=== PATIENT | female | born 1985 | race Caucasian/White ===

== ENCOUNTER 2018-07-10 15:52 | Emergency (ER) | payer MEDICAID ==
[2018-07-10 16:00] VITALS: BP 136/96
--- NOTE | 2018-07-10 16:05 | EDM.PDOC ---
ED HPI GENERAL MEDICAL PROBLEM - General Chief Complaint: Upper Extremity Injury/Pain Stated Complaint: SHARP PAINS RIGHT ARM/SHOULDER Time Seen by Provider: 07/10/18 16:03 Source of Information: Reports: Patient, Old Records, RN, RN Notes Reviewed History Limitations: Reports: No Limitations - History of Present Illness INITIAL COMMENTS - FREE TEXT/NARRATIVE: Pt presents to ER by POV with c/o one weeks duration of sharp pains with muscle spasms at the right trapezius area, and has right wrist pain and swelling. Denies any recent injury, redness, fevers, or chills. Pt reports right wrist fracture 25yrs ago but did not have a cast or f/u care. Pt is concerned that she might be having radiating from a pinched nerve in her neck. Denies neck pain or injury. Pt rates the pain 08/14. 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: Acetaminophen, NSAIDS Right Wrist Pain Score (Numeric/FACES): 7 - Related Data Allergies Allergy/AdvReac Type Severity Reaction Status Date / Time No Known Allergies Allergy Verified 07/10/18 16:01 Home Meds: Home Meds Multivitamin [Multi-Day Vitamins] 1 tab PO DAILY 07/10/18 [History] Past Medical History - Past Surgical History HEENT Surgical History: Reports: Other (See Below) Female Surgical History: Reports: Section Social & Family History - Family History Family Medical History: Noncontributory - Living Situation & Occupation Living situation: Reports: with Family Review of Systems - Review of Systems Review Of Systems: ROS reveals no pertinent complaints other than HPI. ED EXAM, GENERAL - Physical Exam Exam: See Below Exam Limited By: No Limitations General Appearance: Alert, WD/WN, No Apparent Distress, Obese Throat/Mouth: Normal Inspection, Normal Voice, No Airway Compromise Head: Atraumatic, Normocephalic Neck: Normal Inspection, Supple, Non-Tender, Full Range of Motion. No: Lymphadenopathy (L), Lymphadenopathy (R) Respiratory/Chest: No Respiratory Distress, Lungs Clear Cardiovascular: Normal Peripheral Pulses, Regular Rate, Rhythm Back Exam: Full Range of Motion, Muscle Spasm (Rt trapezius region) Extremities: Normal Capillary Refill, Joint Swelling (very mild at Rt wrist with ROM decreased due to pain, no erythema, no increased warmth) Neurological: Alert, Oriented, CN II-XII Intact, Normal Cognition, Normal Gait, No Motor/Sensory Deficits Psychiatric: Normal Affect, Normal Mood Skin Exam: Warm, Dry, Intact, Normal Color, No Rash ED TRAUMA EXTREMITY PROCEDURES - Splinting Right Upper Extremity Splint Site: Right wrist Pre-Procedure NV Status: Normal Post-Procedure NV Status: Normal Splint Material: Velcro Splint Design: Volar Provider Post-Splint Application NV Check: NV Status Normal Complications: No Course - Vital Signs Last Recorded V/S: Last Vital Signs Temp 97.7 F 07/10/18 15:59 Pulse 88 07/10/18 15:59 Resp 16 07/10/18 15:59 BP 136/96 H 07/10/18 15:59 Pulse Ox 97 07/10/18 15:59 - Orders/Labs/Meds Orders: Active Orders 24 hr Category Date Time Status Wrist Comp Min 3V Rt [CR] Urgent Exams 07/10/18 16:14 Taken Departure - Departure Time of Disposition: 16:31 Disposition: Home, Self-Care 01 Condition: Good Clinical Impression: Trapezius muscle spasm, Right wrist pain - Discharge Information *PRESCRIPTION DRUG MONITORING PROGRAM REVIEWED*: Yes *COPY OF PRESCRIPTION DRUG MONITORING REPORT IN PATIENT ARCELIA: Not Applicable Instructions: Joint Pain, [id number], Muscle Cramps and Spasms, [id number] Forms: ED Department Discharge Additional Instructions: Rx: Cyclobenzaprine 10mg *Do not drive or work while under the influence of this medication. Rx: Naprosyn 500mg *Take with food. Wear right wrist splint as needed for comfort. Follow up in clinic for recheck and further evaluation if needed. - My Orders Last 24 Hours: My Active Orders 07/10/18 16:14 Wrist Comp Min 3V Rt [CR] Urgent - Assessment/Plan Last 24 Hours: My Active Orders 07/10/18 16:14 Wrist Comp Min 3V Rt [CR] Urgent
--- NOTE | 2018-07-10 16:51 | CR ---
Clinical history: 33-year-old female pain and swelling of the right wrist. Interpretation: Homogeneous normal bone density appropriate for age and gender. No arthritic degenerative changes. No sign of right wrist fracture or dislocation. No foreign bodies.
== END 2018-07-10 16:37 | disposition home or self-care (01) ==
LOC: DL.ED 15:52
DX: M62.830 Muscle spasm of back (principal); M25.531 Pain in right wrist
CPT/HCPCS: 73110-RT; 99283-25

== ENCOUNTER 2018-12-30 17:55 | Emergency (ER) | payer MEDICAID ==
[2018-12-30 18:15] VITALS: BP 148/81; PULSE 86
[2018-12-30] MEDS ORDERED: Ketorolac 30 MG/ML SDV IM ONE (19:55)
[2018-12-30 20:06] LABS: ANION GAP 12.5; CHLORIDE,CL 106 mmol/L (101-111); SODIUM,NA 138 mmol/L (135-145)
--- NOTE | 2018-12-30 21:17 | EDM.PDOC ---
ED HPI GENERAL MEDICAL PROBLEM - General Chief Complaint: Neck Problem Stated Complaint: NERVE PAIN/DIZZY Time Seen by Provider: 12/30/18 18:30 Source of Information: Reports: Patient, RN, RN Notes Reviewed History Limitations: Reports: No Limitations - History of Present Illness INITIAL COMMENTS - FREE TEXT/NARRATIVE: patient presents to ER with complaint of neck pain, headache. Patient states she woke up very early this morning with a pain in her high neck, base of her skull. Patient states she has history of muscle spasms. Patient denies any recent trauma, car accidents, heavy lifting or repetitive motion. Patient denies any recent illness, cough, N/V/D, fever or chills. patient is tearful and states this is the worst headache she has had.Rates pain 6/10.Denies visual disturbances, but does admit to some dizziness earlier in the day. Onset: Today Duration: Constant Location: Reports: Head, Neck Quality: Reports: Throbbing Severity: Moderate Improves with: Reports: None Worsens with: Reports: None Neck Pain Score (Numeric/FACES): 6 - Related Data Allergies Allergy/AdvReac Type Severity Reaction Status Date / Time No Known Allergies Allergy Verified 12/30/18 18:09 Home Meds: Home Meds Multivitamin [Multi-Day Vitamins] 1 tab PO DAILY 07/10/18 [History] Past Medical History - Past Health History Medical/Surgical History: Denies Medical/Surgical History HEENT History: Reports: None Cardiovascular History: Reports: None Respiratory History: Reports: None Gastrointestinal History: Reports: None Genitourinary History: Reports: None 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 Musculoskeletal History: Reports: Arthritis Other Musculoskeletal History: scolosis, Neurological History: Reports: Seizure Other Neuro History: had a seizure 31 years, Psychiatric History: Reports: ADHD Endocrine/Metabolic History: Reports: None Hematologic History: Reports: None Immunologic History: Reports: None Oncologic (Cancer) History: Reports: None Dermatologic History: Reports: None - Infectious Disease History Infectious Disease History: Reports: Chicken Pox - Past Surgical History Head Surgeries/Procedures: Reports: None Female Surgical History: Reports: Section Social & Family History - Family History Family Medical History: Noncontributory - Tobacco Use Smoking Status *Q: Current Every Day Smoker Years of Tobacco use: 12 Packs/Tins Daily: 1 - Caffeine Use Caffeine Use: Reports: Coffee - Recreational Drug Use Recreational Drug Use: No - Living Situation & Occupation Living situation: Reports: with Family ED ROS GENERAL - Review of Systems Review Of Systems: Comprehensive ROS is negative, except as noted in HPI. ED EXAM, UPPER BACK/NECK PAIN - Physical Exam Exam: See Below Exam Limited By: No Limitations General Appearance: Alert, WD/WN, Moderate Distress Eye Exam: Bilateral Eye: EOMI, Normal Inspection Ears Exam: Normal External Exam, Normal Canal, Hearing Grossly Normal, Normal TMs Nose Exam: Normal Inspection, Normal Mucousa, No Blood Throat/Mouth Exam: Normal Inspection, Normal Lips, Normal Teeth, Normal Gums, Normal Oropharynx, Normal Voice, No Airway Compromise Head Exam: Atraumatic, Normocephalic Neck Exam: Non-Tender, Full Range of Motion, Normal Alignment, Normal Inspection , Stiff Neck, Tenderness, Tender Lateral, Tender Midline Nexus Criteria: Posterior, Midline Cervical Tenderness. 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 As Tested, No Motor/Sensory Deficits, Alert, Normal Mood/Affect, Oriented x 3 Psychiatric: Normal Affect, Anxious Skin Exam: Normal Color, Warm/Dry Lymphatic: No Adenopathy Course - Vital Signs Last Recorded V/S: Last Vital Signs Temp 98.1 F 12/30/18 18:10 Pulse 86 12/30/18 18:10 Resp 16 12/30/18 18:10 BP 148/81 H 12/30/18 18:10 Pulse Ox 100 12/30/18 18:10 - Orders/Labs/Meds Labs: Laboratory Tests 12/30/18 12/30/18 12/30/18 Range/Units 19:29 19:29 19:40 WBC 11.4 H (5.0-10.0) 10^3/uL RBC 4.44 (4.2-5.4) 10^6/uL Hgb 13.3 (12.0-16.0) g/dL Hct 40.6 (37.0-47.0) % MCV 91.4 (80-100) fL MCH 30.0 (27.0-34.0) pg MCHC 32.8 L (33.0-35.0) g/dL Plt Count 530 H (150-450) 10^3/uL Neut % (Auto) 57.6 (42.2-75.2) % Lymph % (Auto) 34.4 (20.5-50.1) % [place] % (Auto) 6.1 (2-8) % Eos % (Auto) 1.5 (1.0-3.0) % Baso % (Auto) 0.4 (0.0-1.0) % Sodium (135-145) mmol/L Potassium (3.6-5.0) mmol/L Chloride (101-111) mmol/L Carbon Dioxide (21.0-31.0) mmol/L Anion Gap BUN (7-18) mg/dL Creatinine (0.6-1.3) mg/dL Est Cr Clr Drug Dosing mL/min Estimated GFR (MDRD) BUN/Creatinine Ratio Glucose (74-105) mg/dL Calcium (8.4-10.2) mg/dl Total Bilirubin (0.2-1.0) mg/dL AST (10-42) IU/L ALT (10-60) IU/L Alkaline Phosphatase (42-121) IU/L Total Protein (6.7-8.2) g/dl Albumin (3.2-5.5) g/dl Globulin Albumin/Globulin Ratio Urine Color Yellow (YELLOW) Urine Appearance Slightly cloudy (CLEAR) Urine pH 7.0 (5.0-9.0) Ur Specific Otto 1.010 (1.005-1.030) Urine Protein Negative (NEGATIVE) Urine Glucose (UA) Negative (NEGATIVE) Urine Ketones Negative (NEGATIVE) Urine Occult Blood Trace-intact H (NEGATIVE) Urine Nitrite Negative (NEGATIVE) Urine Bilirubin Negative (NEGATIVE) Urine Urobilinogen 1.0 (0.2-1.0) mg/dL Ur Leukocyte Esterase Negative (NEGATIVE) Urine RBC 5-10 H /HPF Urine WBC 0-5 (0-5/HPF) /HPF Ur Epithelial Cells Few (NOT SEEN) /HPF Urine Bacteria Rare (0-FEW/HPF) /HPF Urine HCG, Qual Negative 12/30/18 Range/Units 19:40 WBC (5.0-10.0) 10^3/uL RBC (4.2-5.4) 10^6/uL Hgb (12.0-16.0) g/dL Hct (37.0-47.0) % MCV (80-100) fL MCH (27.0-34.0) pg MCHC (33.0-35.0) g/dL Plt Count (150-450) 10^3/uL Neut % (Auto) (42.2-75.2) % Lymph % (Auto) (20.5-50.1) % [place] % (Auto) (2-8) % Eos % (Auto) (1.0-3.0) % Baso % (Auto) (0.0-1.0) % Sodium 138 (135-145) mmol/L Potassium 3.5 L (3.6-5.0) mmol/L Chloride 106 (101-111) mmol/L Carbon Dioxide 23.0 (21.0-31.0) mmol/L Anion Gap 12.5 BUN 9 (7-18) mg/dL Creatinine 0.8 (0.6-1.3) mg/dL Est Cr Clr Drug Dosing 82.74 mL/min Estimated GFR (MDRD) > 60 BUN/Creatinine Ratio 11.25 Glucose 120 H (74-105) mg/dL Calcium 9.3 (8.4-10.2) mg/dl Total Bilirubin 0.6 (0.2-1.0) mg/dL AST 22 (10-42) IU/L ALT 22 (10-60) IU/L Alkaline Phosphatase 65 (42-121) IU/L Total Protein 7.7 (6.7-8.2) g/dl Albumin 4.5 (3.2-5.5) g/dl Globulin 3.2 Albumin/Globulin Ratio 1.41 Urine Color (YELLOW) Urine Appearance (CLEAR) Urine pH (5.0-9.0) Ur Specific Otto (1.005-1.030) Urine Protein (NEGATIVE) Urine Glucose (UA) (NEGATIVE) Urine Ketones (NEGATIVE) Urine Occult Blood (NEGATIVE) Urine Nitrite (NEGATIVE) Urine Bilirubin (NEGATIVE) Urine Urobilinogen (0.2-1.0) mg/dL Ur Leukocyte Esterase (NEGATIVE) Urine RBC /HPF Urine WBC (0-5/HPF) /HPF Ur Epithelial Cells (NOT SEEN) /HPF Urine Bacteria (0-FEW/HPF) /HPF Urine HCG, Qual Meds: Medications Discontinued Medications Generic Name Dose Route Start Last Admin Trade Name Lalitoq PRN Reason Stop Dose Admin Ketorolac Tromethamine 30 mg 12/30/18 19:55 12/30/18 20:15 Toradol IM 12/30/18 19:56 30 mg ONETIME ONE Administration Orphenadrine Citrate 60 mg 12/30/18 19:56 12/30/18 20:14 Norflex IM 12/30/18 19:57 60 mg ONETIME ONE Administration - Radiology Interpretation Free Text/Narrative:: head CT without contrast: FINDINGS: Brain: Normal. No hemorrhage. Unremarkable white matter. No mass effect. Ventricles: Normal. No ventriculomegaly. Bones/joints: Unremarkable. No acute fracture. Sinuses: Visualized sinuses are unremarkable. No fluid levels. Mastoid air cells: Visualized mastoid air cells are well aerated. Soft tissues: Unremarkable. IMPRESSION: No acute intracranial abnormality. Thank you for allowing us to participate in the care of your patient. Dictated and Authenticated by: Vik Fuentes MD C-spine CT without contrast: FINDINGS: Vertebrae: No fracture or malalignment. Remaining disc levels and facet joints are unremarkable. Discs/Spinal canal/Neural foramina: Mild disc degeneration with posterior discussed by complex at C4-5. No significant spinal or foraminal stenosis. Soft tissues: Unremarkable. Lungs: Lung apices are normal. IMPRESSION: 1. Mild degenerative changes at C4-5. 2. No fracture or malalignment. Thank you for allowing us to participate in the care of your patient. Dictated and Authenticated by: Vik Fuentes MD See radiologist's report Departure - Departure Time of Disposition: 21:15 Disposition: Home, Self-Care 01 Condition: Fair Clinical Impression: Muscle tension headache - Discharge Information *PRESCRIPTION DRUG MONITORING PROGRAM REVIEWED*: No *COPY OF PRESCRIPTION DRUG MONITORING REPORT IN PATIENT ARCELIA: No Instructions: Tension Headache, Adult, [id number], Cervical Sprain, Easy-to- Read Referrals: PCP,None [Primary Care Provider] - Forms: ED Department Discharge Additional Instructions: Rx: Flexeril Do Not Drive while taking May use Tylenol and Ibuprofen as directed for pain Apply heat to the neck as tolerated Follow up with your primary care facility [facility]
== END 2018-12-30 21:22 | disposition home or self-care (01) ==
LOC: DL.ED 17:55
DX: G44.209 Tension-type headache, unspecified, not intractable (principal); F17.210 Nicotine dependence, cigarettes, uncomplicated
CPT/HCPCS: 36415; 70450; 72125; 80053; 81001; 81025; 85025; 96372; 99284-25; J1885; J2360

== ENCOUNTER 2021-01-02 16:01 | Emergency (ER) | payer MEDICAID ==
[2021-01-02] MEDS ORDERED: Benzocaine/Cetylpyridinium/Menthol Lozenge ONE (16:02)
[2021-01-02] MEDS ORDERED: Benzonatate 100 MG Cap PO ONE (16:02)
[2021-01-02 16:40] VITALS: BP 148/91; PULSE 92
--- NOTE | 2021-01-02 17:52 | EDM.PDOC ---
ED HPI GENERAL MEDICAL PROBLEM - General Chief Complaint: General Stated Complaint: 97.2*, COUGHING, SORE THROAT, CHILLS Time Seen by Provider: 01/02/21 17:10 Source of Information: Reports: Patient, RN, RN Notes Reviewed History Limitations: Reports: No Limitations - History of Present Illness INITIAL COMMENTS - FREE TEXT/NARRATIVE: Debbi is a 35 y/o female who presents to the ED via personal vehicle with complaints of cough, sore throat, and nasal congestion. The patient reports her symptoms began two days ago and have progressively worsened in that time. Additionally, she notes fatigue and muscle aches. She denies fever, shaking chills, vision changes, dizziness, chest pain/pressure, palpitations, shortness of breath, abdominal pain, nausea, vomiting, or dyspepsia. The patient denies history of COVID infection; she is not vaccinated for COVID-19 or Influenza. The patient has taken no medications or performed any supportive cares for her symptoms. She attests to smoking one pack of cigarettes per day; she denies alcohol or recreational drug use. Generalized Pain Score (Numeric/FACES): 8 - Related Data Allergies Allergy/AdvReac Type Severity Reaction Status Date / Time No Known Allergies Allergy Verified 01/02/21 16:40 Home Meds: Home Meds Multivitamin [Multi-Day Vitamins] 1 tab PO DAILY 07/10/18 [History] Meloxicam 15 mg PO ASDIRECTED 01/02/21 [History] Omeprazole 20 mg PO ASDIRECTED 01/02/21 [History] Past Medical History - Past Health History Medical/Surgical History: Denies Medical/Surgical History HEENT History: Reports: None Cardiovascular History: Reports: None Respiratory History: Reports: None Gastrointestinal History: Reports: None Genitourinary History: Reports: None 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 Musculoskeletal History: Reports: Arthritis Other Musculoskeletal History: scolosis, Neurological History: Reports: Seizure Other Neuro History: had a seizure 31 years, Psychiatric History: Reports: ADHD Endocrine/Metabolic History: Reports: None Hematologic History: Reports: None Immunologic History: Reports: None Oncologic (Cancer) History: Reports: None Dermatologic History: Reports: None - Infectious Disease History Infectious Disease History: Reports: Chicken Pox - Past Surgical History Head Surgeries/Procedures: Reports: None HEENT Surgical History: Reports: Other (See Below) Other HEENT Surgeries/Procedures: teeth pulled Female Surgical History: Reports: Section Social & Family History - Family History Family Medical History: No Pertinent Family History - Tobacco Use Tobacco Use Status *Q: Current Every Day Tobacco User Years of Tobacco use: 15 Packs/Tins Daily: 1 - Caffeine Use Caffeine Use: Reports: Coffee, Energy Drinks, Soda - Recreational Drug Use Recreational Drug Use: No - Living Situation & Occupation Living situation: Reports: with Family ED ROS GENERAL - Review of Systems Review Of Systems: Comprehensive ROS is negative, except as noted in HPI. ED EXAM, GENERAL - Physical Exam Exam: See Below Exam Limited By: No Limitations General Appearance: Alert, No Apparent Distress Eye Exam: Bilateral Eye: EOMI, Normal Inspection, PERRL (3mm) Ears: Normal External Exam, Normal Canal, Hearing Grossly Normal, Normal TMs Nose: Normal Inspection, Normal Mucosa Throat/Mouth: Normal Voice, No Airway Compromise, Inflammation (Erythema to posterior oropharynx). No: Normal Lips (Dry, cracked) Head: Atraumatic, Normocephalic Neck: Normal Inspection, Supple, Non-Tender, Full Range of Motion. No: Lymphadenopathy (L), Lymphadenopathy (R) Respiratory/Chest: No Respiratory Distress, Lungs Clear, Normal Breath Sounds, No Accessory Muscle Use, Chest Non-Tender. No: Crackles, Rales, Rhonchi, Wheezing, Stridor Cardiovascular: Normal Peripheral Pulses, Regular Rate, Rhythm, No Gallop, No Murmur, No Rub Peripheral Pulses: 2+: Radial (L), Radial (R) GI/Abdominal: Normal Bowel Sounds, Soft, Non-Tender, No Distention, No Abnormal Bruit, No Mass, Pelvis Stable (Female) Exam: Deferred Rectal (Female) Exam: Deferred Back Exam: Normal Inspection, Full Range of Motion Extremities: Normal Inspection, Normal Range of Motion, Normal Capillary Refill Neurological: Alert, Oriented, CN II-XII Intact, Normal Cognition, Normal Gait, No Motor/Sensory Deficits Psychiatric: Normal Affect, Normal Mood Skin Exam: Warm, Dry, Intact, Normal Color, No Rash. No: Cyanosis, Jaundice, Mottled, Pallor Course - Vital Signs Last Recorded V/S: Last Vital Signs Temp 97.4 F 01/02/21 16:37 Pulse 92 01/02/21 16:37 Resp 14 01/02/21 16:37 BP 148/91 H 01/02/21 16:37 Pulse Ox 99 01/02/21 16:37 - Orders/Labs/Meds Meds: Medications Discontinued Medications Generic Name Dose Route Start Last Admin Trade Name Jadiel PRN Reason Stop Dose Admin Benzocaine/Menthol 2 lozenge 01/02/21 18:27 01/02/21 18:28 Benzocaine/Cetylpyridinium/Menthol Lozenge MUCMEM 01/02/21 18:28 Not Given ONETIME ONE Benzocaine/Menthol 3 lozenge 01/02/21 16:02 Benzocaine/Cetylpyridinium/Menthol Lozenge .XX 01/02/21 16:03 .STK-MED ONE Benzonatate Confirm 01/02/21 17:59 01/02/21 18:26 Benzonatate 100 Mg Cap Administered 01/02/21 18:00 Not Given Dose 200 mg .ROUTE .STK-MED ONE Benzonatate 100 mg 01/02/21 16:02 Benzonatate 100 Mg Cap PO 01/02/21 16:03 .STK-MED ONE - Re-Assessments/Exams Free Text/Narrative Re-Assessment/Exam: 01/02/21 Findings of examination reviewed with patient. Will treat cough with Tessalon Perles and sore throat with Cepacol lozenges. Supportive cares for viral URI discussed. Patient instructed to follow up with primary care provider regarding todays visit. Red flag signs and symptoms which would warrant immediate reevaluation reviewed. Patient verbalized understanding and agreement with the plan of care. Departure - Departure Time of Disposition: 17:48 Disposition: Home, Self-Care 01 Condition: Good Clinical Impression: Viral upper respiratory infection - Discharge Information *PRESCRIPTION DRUG MONITORING PROGRAM REVIEWED*: Not Applicable *COPY OF PRESCRIPTION DRUG MONITORING REPORT IN PATIENT ARCELIA: Not Applicable Instructions: Upper Respiratory Infection, Adult Forms: ED Department Discharge Additional Instructions: Rx: Tessalon Perles (#15) Rx: Cepacol lozenges (#16) 1.) Continue to drink plenty of water to stay hydrated and keep secretions clear. 2.) Eat small, frequent meals. 3.) You may take ibuprofen (Advil/Motrin) 400mg every six hours, as headache persists. You may also take acetaminophen (Tylenol) 650mg every six hours, as headache persists. You may stagger these medications so you are taking a dose of either every three hours. 4.) Follow up with your primary care provider, or return to the emergency department, with any persistent or worsening symptoms despite medications. Sepsis Event Note (ED) - Evaluation Sepsis Screening Result: No Definite Risk
[2021-01-02] MEDS ORDERED: Benzonatate 100 MG Cap ONE (17:59)
[2021-01-02] MEDS ORDERED: Benzocaine/Cetylpyridinium/Menthol Lozenge MUCMEM ONE (18:27)
== END 2021-01-02 18:06 | disposition home or self-care (01) ==
LOC: DL.ED 16:01
DX: J06.9 Acute upper respiratory infection, unspecified (principal); Z72.0 Tobacco use; Z79.899 Other long term (current) drug therapy
CPT/HCPCS: 99283; A9270

== ENCOUNTER 2021-02-10 13:02 | Emergency (ER) | payer MEDICAID ==
--- NOTE | 2021-02-10 13:37 | EDM.PDOC ---
ED HPI GENERAL MEDICAL PROBLEM - General Chief Complaint: ENT Problem Stated Complaint: WOKE UP VERY SWOLLEN JAW /FACE Time Seen by Provider: 02/10/21 13:37 Source of Information: Reports: Patient, Care Home Records, RN History Limitations: Reports: No Limitations - History of Present Illness INITIAL COMMENTS - FREE TEXT/NARRATIVE: Pt presents to ER by POV with c/o right face swelling and pain that began yesterday. This morning when she woke this morning the swelling had increased. Denies fever, headache, or neck pain/stiffness. Pt has a chronically decayed lower right molar. Onset: Gradual Duration: Constant, Getting Worse Location: Reports: Face Quality: Reports: Ache, Pressure, Throbbing Severity: Moderate Improves with: Reports: None Worsens with: Reports: Eating Associated Symptoms: Reports: No Other Symptoms Right Lower Jaw Pain Score (Numeric/FACES): 6 - Related Data Allergies Allergy/AdvReac Type Severity Reaction Status Date / Time clindamycin Allergy Difficulty Verified 02/10/21 14:02 Breathing Home Meds: Home Meds Multivitamin [Multi-Day Vitamins] 1 tab PO DAILY 07/10/18 [History] Meloxicam 15 mg PO ASDIRECTED 01/02/21 [History] Omeprazole 20 mg PO ASDIRECTED 01/02/21 [History] Nortriptyline 10 mg PO BID 02/10/21 [History] Past Medical History - Past Health History Medical/Surgical History: Denies Medical/Surgical History HEENT History: Reports: None Cardiovascular History: Reports: None Respiratory History: Reports: None Gastrointestinal History: Reports: None Genitourinary History: Reports: None 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 History: Reports: None Musculoskeletal History: Reports: Arthritis Other Musculoskeletal History: scolosis, Neurological History: Reports: Seizure Other Neuro History: had a seizure 31 years, Psychiatric History: Reports: ADHD Endocrine/Metabolic History: Reports: None Hematologic History: Reports: None Immunologic History: Reports: None Oncologic (Cancer) History: Reports: None Dermatologic History: Reports: None - Infectious Disease History Infectious Disease History: Reports: Chicken Pox - Past Surgical History Head Surgeries/Procedures: Reports: None HEENT Surgical History: Reports: Other (See Below) Other HEENT Surgeries/Procedures: teeth pulled Female Surgical History: Reports: Section Social & Family History - Family History Family Medical History: No Pertinent Family History - Caffeine Use Caffeine Use: Reports: Coffee, Energy Drinks, Soda - Living Situation & Occupation Living situation: Reports: with Family ED ROS ENT - Review of Systems Review Of Systems: Comprehensive ROS is negative, except as noted in HPI. ED EXAM, ENT - Physical Exam Exam: See Below Exam Limited By: No Limitations General Appearance: Alert, No Apparent Distress, Obese Eye Exam: Bilateral Eye: Normal Inspection Nose: Normal Inspection, Normal Mucousa, No Blood Mouth/Throat: Normal Lips, Normal Oropharynx, Gum Swelling (with deep caries at right mandibular molar, significant right facial swelling, tenderness and increased warmth without erythema.) Head: Atraumatic, Facial Swelling, Facial Tenderness Neck: Full Range of Motion, Lymphadenopathy (R). No: Lymphadenopathy (L) Respiratory/Chest: No Respiratory Distress, Lungs Clear Neurological: Alert, Oriented, CN II-XII Intact, Normal Cognition, Normal Gait, No Motor/Sensory Deficits Psychiatric: Normal Affect, Normal Mood Skin: Warm, Dry, Intact, Normal Color, No Rash ED ENT PROCEDURES - Additional/Other Procedure(s) Other (Free Text) Procedure(s): Aspiration of abscess from the intraoral approach resulted in no return of purulent material. Course - Vital Signs Last Recorded V/S: Last Vital Signs Temp 97.8 F 02/10/21 13:34 Pulse 77 02/10/21 13:34 Resp 16 02/10/21 13:34 BP 124/55 L 02/10/21 13:34 Pulse Ox 99 02/10/21 13:34 - Orders/Labs/Meds Orders: Active Orders 24 hr Category Date Time Status CULTURE BLOOD [BC] Stat Lab 02/10/21 13:57 Received Labs: Laboratory Tests 02/10/21 02/10/21 Range/Units 13:57 13:57 WBC 13.3 H (5.0-10.0) 10^3/uL RBC 4.66 (4.2-5.4) 10^6/uL Hgb 11.6 L D (12.0-16.0) g/dL Hct 37.4 (37.0-47.0) % MCV 80.3 D (80-100) fL MCH 24.9 L (27.0-34.0) pg MCHC 31.0 L (33.0-35.0) g/dL Plt Count 470 H (150-450) 10^3/uL Neut % (Auto) 75.5 H (42.2-75.2) % Lymph % (Auto) 17.7 L (20.5-50.1) % Routt % (Auto) 5.3 (2-8) % Eos % (Auto) 1.3 (1.0-3.0) % Baso % (Auto) 0.2 (0.0-1.0) % Sodium 139 (136-145) mmol/L Potassium 3.7 (3.5-5.1) mmol/L Chloride 101 (98-107) mmol/L Carbon Dioxide 26 (21-32) mmol/L Anion Gap 15.7 H (7-13) mEq/L BUN 25 H (7-18) mg/dL Creatinine 0.74 (0.55-1.02) mg/dL Est Cr Clr Drug Dosing 107.04 mL/min Estimated GFR (MDRD) > 60 Glucose 91 (70-99) mg/dL Calcium 8.8 (8.5-10.1) mg/dL C-Reactive Protein 3.9 H (0.0-0.9) mg/dL HCG, Qual Negative Meds: Medications Discontinued Medications Generic Name Dose Route Start Last Admin Trade Name Freq PRN Reason Stop Dose Admin Dexamethasone 20 mg 02/10/21 15:11 02/10/21 16:09 Dexamethasone 4 Mg/Ml Sdv IVPUSH 02/10/21 15:12 20 mg ONETIME ONE Administration Piperacillin Sod/Tazobactam 100 mls @ 200 mls/hr 02/10/21 15:10 02/10/21 16:10 Sod 4.5 gm/ Sodium Chloride IV 02/10/21 15:39 200 mls/hr ONETIME ONE Administration Sodium Chloride 1,000 mls @ 999 mls/hr 02/10/21 15:11 02/10/21 16:11 Normal Saline IV 02/10/21 16:11 999 mls/hr .BOLUS ONE Administration Sodium Chloride 1,000 mls @ 999 mls/hr 02/10/21 15:13 02/10/21 16:21 Normal Saline IV 02/10/21 16:13 999 mls/hr .BOLUS ONE Administration Iopamidol 100 ml 02/10/21 13:45 02/10/21 15:07 Iopamidol 612 Mg/Ml 100 Ml Bottle IVPUSH 02/10/21 13:46 100 ml ONETIME ONE Administration Lidocaine HCl 15 ml 02/10/21 15:10 02/10/21 16:09 Lidocaine 2% Viscous Solution 15 Ml Ud MUCMEM 02/10/21 15:11 15 ml ONETIME ONE Administration Lidocaine HCl 30 ml 02/10/21 15:12 02/10/21 16:16 Lidocaine 1% 30 Ml Sdv INJECT 02/10/21 15:13 30 ml ONETIME ONE Administration Ondansetron HCl 4 mg 02/10/21 15:11 02/10/21 16:09 Ondansetron 4 Mg/2 Ml Sdv IV 02/10/21 15:12 4 mg ONETIME ONE Administration - Radiology Interpretation Free Text/Narrative:: CT Max/Facial: see Rad. report. Departure - Departure Time of Disposition: 16:55 Disposition: Home, Self-Care 01 Condition: Good Clinical Impression: Dental abscess, Dental caries - Discharge Information *PRESCRIPTION DRUG MONITORING PROGRAM REVIEWED*: Not Applicable *COPY OF PRESCRIPTION DRUG MONITORING REPORT IN PATIENT ARCELIA: Not Applicable Instructions: Dental Abscess, Dental Caries, Adult Forms: ED Department Discharge Additional Instructions: Rx: Augmentin 875mg Rx: Flagyl (Metronidazole) 500mg *Do not drink alcohol while taking this medication. Rx: Peridex (Chlorhexidine) mouth rinse. Follow up in clinic with your dentist at the first available appointment. See you primary doctor if unable to find a dentist. Return to ER if worse at any time. Sepsis Event Note (ED) - Focused Exam Vital Signs: Vital Signs Temp Pulse Resp BP Pulse Ox 02/10/21 13:34 97.8 F 77 16 124/55 L 99 - My Orders Last 24 Hours: My Active Orders 02/10/21 13:57 CULTURE BLOOD [BC] Stat - Assessment/Plan Last 24 Hours: My Active Orders 02/10/21 13:57 CULTURE BLOOD [BC] Stat
[2021-02-10] MEDS ORDERED: Iopamidol 612 MG/ML 100 ML Bottle IVPUSH ONE (13:45)
[2021-02-10 13:51] VITALS: BP 124/55; PULSE 77
[2021-02-10 14:20] LABS: ANION GAP 15.7 mEq/L (7-13); CHLORIDE,CL 101 mmol/L (98-107); SODIUM,NA 139 mmol/L (136-145)
[2021-02-10] MEDS ORDERED: Lidocaine 2% Viscous Solution 15 ML UD MUCMEM ONE (15:10)
[2021-02-10] MEDS ORDERED: Piperacillin/Tazobactam 4.5 GM in Sodium Chloride 0.9% 100 ML IV ONE (15:10)
[2021-02-10] MEDS ORDERED: Dexamethasone 4 MG/ML SDV IVPUSH ONE (15:11)
[2021-02-10] MEDS ORDERED: Sodium Chloride 0.9% 1,000 ML IV ONE ×2 (15:11→15:13)
[2021-02-10] MEDS ORDERED: Ondansetron 4 MG/2 ML SDV IV ONE (15:11)
[2021-02-10] MEDS ORDERED: Lidocaine 1% 30 ML SDV INJECT ONE (15:12)
--- NOTE | 2021-02-10 16:47 | CT ---
EXAMINATION: Max Facial Sinus w Cont SEX: Female AGE: 35 years CLINICAL HISTORY: Including paranasal and mastoid sinuses obtained during the intravenous administration 100 cc nonionic Isovue contrast while patient was lying supine on the Siemens multislice scanner [place], [place]. All data archived in the PACS system for storage, reformatting axial/sagittal/coronal planes and study. Interpretation: Abnormal. 1. Asymmetric pronounced soft tissue swelling and "dirty" fat extending laterally over the mandible, on the right. 2. No foreign bodies. Salivary glands unremarkable. 3. Absent ipsilateral teeth in the right mandibular, posteriorly, with gas in the tooth "bed". Dental Abscess? 4. No mandibular fracture or dislocation. No osteomyelitis of the mandible appreciated. 5. Symmetric clear pneumatization of the paranasal and mastoid sinuses i.e. no sinusitis. 6. Symmetric normal optic globes. No periorbital or retro-orbital inflammatory involvement.
== END 2021-02-10 17:15 | disposition home or self-care (01) ==
LOC: DL.ED 13:02
DX: K04.7 Periapical abscess without sinus (principal); K02.9 Dental caries, unspecified; Z88.1 Allergy status to other antibiotic agents; Z79.899 Other long term (current) drug therapy
CPT/HCPCS: 36415; 70487; 80048; 84703; 85025; 86140; 87040; 96365; 96375; 99284; A9270; J1100; J2405; J2543; J7030; Q9967

== ENCOUNTER 2024-02-25 12:04 | Emergency (ER) | payer MEDICAID ==
[2024-02-25 12:27] LABS: APPEARANCE,URINE SLIGHTLY CLOUDY (CLEAR); BILIRUBIN,URINE NEGATIVE (NEGATIVE); COLOR,URINE YELLOW (YELLOW); GLUCOSE,URINE NEGATIVE (NEGATIVE); KETONES,URINE NEGATIVE (NEGATIVE); LEUKOCYTE ESTERASE,URINE NEGATIVE (NEGATIVE); NITRITE,URINE NEGATIVE (NEGATIVE); OCCULT BLOOD,URINE LARGE (NEGATIVE); PROTEIN,URINE NEGATIVE (NEGATIVE)
[2024-02-25 12:36] LABS: BACTERIA,URINE FEW /HPF (0-FEW/HPF); EPITHELIAL CELLS,URINE FEW /HPF (NOT SEEN); RBC,URINE SEMI-PACKED /HPF (0-5); WBC,URINE 0-5 /HPF (0-5/HPF)
[2024-02-25] MEDS ORDERED: Sodium Chloride 0.9% 10 ML Syringe FLUSH PRN (12:45)
[2024-02-25] MEDS: Ketorolac 30 MG/ML SDV IVPUSH ONE (12:56)
[2024-02-25 12:59] LABS: BASOPHILS PERCENT AUTO 0.4 % (0.0-1.0); EOSINOPHILS PERCENT AUTO 1.3 % (1.0-3.0); HEMATOCRIT 39.8 % (37.0-47.0); HEMOGLOBIN 12.6 g/dL (12.0-16.0); LYMPHOCYTES PERCENT AUTO 21.3 % (20.5-50.1); MEAN CORPUSCULAR HEMOGLOBIN 27.6 pg (27.0-34.0); MEAN CORPUSCULAR HGB CONC 31.7 g/dL (33.0-35.0); MEAN CORPUSCULAR VOLUME 87.1 fL (80-100); MONOCYTES PERCENT AUTO 4.8 % (2-8); NEUTROPHILS PERCENT AUTO 72.2 % (42.2-75.2); PLATELET COUNT,PLT 565 10^3/uL (150-450); RED BLOOD CELL COUNT 4.57 10^6/uL (4.2-5.4); WHITE BLOOD CELL COUNT,WBC 10.6 10^3/uL (5.0-10.0)
[2024-02-25 13:01] VITALS: BP 145/91; PULSE 92
[2024-02-25 13:18] LABS: PROTHROMBIN TIME 9.9 SEC (9.0-12.0); PTT,PARTIAL THROMBOPLSTIN TIME 26.7 SEC (22.0-34.0)
[2024-02-25 13:19] LABS: ALBUMIN 3.9 g/dL (3.4-5.0); ANION GAP 16.2 mEq/L (7-13); BILIRUBIN TOTAL 0.3 mg/dL (0.2-1.0); BUN/CREATININE RATIO 10.5 (No establ ref range); CALCIUM 9.1 mg/dL (8.5-10.1); CREATININE 0.86 mg/dL (0.55-1.02); EST CRCL DRUG DOSING (CG) 76.59 mL/min; POTASSIUM,K 4.2 mmol/L (3.5-5.1); PROTEIN TOTAL,TP 7.7 g/dL (6.4-8.2)
== END 2024-02-25 13:47 | disposition home or self-care (01) ==
LOC: DL.ED 12:04
DX: N93.9 Abnormal uterine and vaginal bleeding, unspecified (principal); N94.6 Dysmenorrhea, unspecified; F17.210 Nicotine dependence, cigarettes, uncomplicated; Z88.1 Allergy status to other antibiotic agents; Z88.8 Allergy status to other drugs, medicaments and biological substances
CPT/HCPCS: 36415; 80053; 81001; 81025; 85025; 85610; 85730; 96374; 99284-25; J1885